=== PATIENT | female | born 1985 | race Caucasian/White ===

== ENCOUNTER 2016-12-16 14:14 | Emergency (ER) | payer MEDICAID, OTHER ==
[2016-12-16 14:35] VITALS: BP 137/81
[2016-12-16 15:24] LABS: Hematocrit 37.6 % (37.0-47.0); Hemoglobin 11.2 gm/dL (12.5-16.0); Mean Cell Volume 75.4 fl (78-100); Mean Corpuscular Hemoglobin 22.4 pg (27-31); Mean Corpuscular Hgb Conc 29.8 g/dl (32-36); Neutrophil # 5.1 K/mm3 (1.3-6.0); Neutrophil % 64.7 % (42-75.0); Platelet Count 237 K/mm3 (150-450); Red Blood Count 4.99 M/mm3 (4.2-5.4); Red Cell Distribution Width 17.7 % (11.5-14.0); White Blood Count 7.8 K/mm3 (4.0-10.5)
--- NOTE | 2016-12-16 15:50 | ERNOTE ---
Integumentary HPI - Narrative Date of Service: 12/16/16 - General Presenting Symptoms: other - "cellulitis" Time Seen by Provider: 12/16/16 14:20 Source: patient Exam Limitations: no limitations - Immun/Allergies/Home Medications Immunizations: IMMUNIZATION HX Immunizations Up to Date Yes History of Influenza Vaccine Yes Hx Pneumococcal Vaccination No Allergies/Adverse Reactions: Allergies Allergy/AdvReac Type Severity Reaction Status Date / Time No Known Allergies Allergy Unverified 12/16/16 14:37 Home Medications: HOME MEDICATIONS Clindamycin HCl [Cleocin HCl] 300 mg PO QID #40 capsule 12/16/16 [Last Taken Unknown] Diltiazem HCl [Diltiazem 24Hr Cd] 240 mg PO DAILY 12/16/16 [Last Taken Unknown] Lisinopril [Zestril] 10 mg PO DAILY 12/16/16 [Last Taken Unknown] - History of Present Illness Narrative: patient presents to the ED for "cellulitis". She relates she has had recurrent right leg cellulitis. Has had more redness and warmth right low leg for the last couple of days. She has had this before with cellulitis and wanted to get back on antibiotics. Last antibiotics was a couple of weeks ago. No other calf pain. No fever. No acute focal N/T/W. no CP or SOB. Location: Reports: other - right LE Modifying Factors - (Improves): Reports: nothing Modifying Factors - (Worsens): Reports: nothing Associated Symptoms: Denies: fever Prior Treatment: Denies: recently seen Review of Systems - Review of Systems Constitutional: Absent: fever Respiratory: Absent: shortness of breath Cardiology: Absent: chest pain Gastrointestinal/Abdominal: Present: no symptoms reported - Patient's Past Medical History Patient History - Medical: No pertinent hx Patient History - Cardiac/Respiratory: Hypertension Patient History - Cancer: No Hx of Cancer Patient History - Surgical Procedures: Pacemaker Patient History - Other: None - Social History Living Situations: home Psych History: No pertinent hx Smoking Status: Never smoker Have you smoked in the past 12 months: No Alcohol Use: none Drug Use: none - Immunizations Immunizations Up to Date: Yes Hx Pneumococcal Vaccination: No History of Influenza Vaccine: Yes Physical Exam - Physical Exam General Appearance: Present: alert, no apparent distress, other - stable, non- toxic, no distress Head Exam: Present: normal inspection, no evidence of injury Eye Exam: Normal inspection: bilateral Ears, Nose, Throat: Present: normal ENT inspection Neck: Present: normal inspection Respiratory: Present: no respiratory distress, normal breath sounds, lungs clear Cardiovascular/Chest: Present: regular rate, rhythm Gastrointestinal/Abdominal: Present: normal bowel sounds, nontender, soft Back Exam: Present: normal range of motion Extremity Exam: Present: other - Mild anterior right LE cellulitis. No abscess , no drainage, no nec fasc. Foot warm and well perfused. No suggestion of DVT. Neurological Exam: Present: alert, normal mood/affect, no motor/sensory deficits Skin Exam: Present: normal color, warm/dry, other - mild cellulitis anterior right springer ED Progress - Results and Orders Patient's Lab Results:: I have reviewed the patient's lab results. - Vital Signs Patient's Vital Signs:: I have reviewed the patient's vital signs. Vital Signs: Vital Signs 12/16/16 14:29 Temperature 37.1 C Pulse Rate 82 Respiratory 16 Rate Blood Pressure 137/81 O2 Sat by Pulse 95 Oximetry - Progress/Reassessment Chief Complaint: Cellulitis Progress Note-Subjective: 12/16/16 15:49 No evidence of sepsis, toxicity, nec fasc, DVT, neuro vascular deficit or other life threat. Will start ABx with close f/u. She feels like goinng home. I discussed warning signs and reasons to reutrn as well as the need for close f/u. Departure Clinical Impression: Cellulitis - Departure Disposition: Home self-care Condition: Stable Instructions: Cellulitis, Adult, [id number] Additional Instructions: Rest. Fluids. Antibiotics as directed. You need to be re-checked by your doctor within 3 days. Return here for fever, increased redness or if your condition worsens or changes in any way. Prescriptions: Clindamycin HCl [Cleocin HCl] 300 mg PO QID #40 capsule
== END 2016-12-16 15:45 | disposition home or self-care (01) ==
LOC: ER 14:14
DX: L03.115 Cellulitis of right lower limb (principal); I10 Essential (primary) hypertension

== ENCOUNTER 2017-02-28 16:27 | Emergency (ER) | payer OTHER ==
--- NOTE | 2017-02-28 16:48 | ERNOTE ---
Lower Extremity HPI - Narrative Date of Service: 02/28/17 - General Lower Extremities Pain: leg: right Time Seen by Provider: 02/28/17 16:38 Source: patient Exam Limitations: no limitations - Immun/Allergies/Home Medications Immunizations: IMMUNIZATION HX Immunizations Up to Date Yes History of Influenza Vaccine No Hx Pneumococcal Vaccination No Allergies/Adverse Reactions: Allergies Allergy/AdvReac Type Severity Reaction Status Date / Time No Known Allergies Allergy Verified 02/28/17 16:35 Home Medications: HOME MEDICATIONS Diltiazem HCl [Diltiazem 24Hr Cd] 240 mg PO DAILY 12/16/16 [Last Taken Unknown] Lisinopril [Zestril] 10 mg PO DAILY 12/16/16 [Last Taken Unknown] - History of Present Illness Narrative: 31-year-old female presents to the emergency room from her doctor's office for right lower leg cellulitis. Patient states she has had multiple rounds of antibiotics for the cellulitis and it has not gotten better. The patient is a darkened area on her midshin on her right leg is swollen. Date (Duration): 02/28/17 Occurred: other Other Injuries: Reports: none Review of Systems - Review of Systems Constitutional: Present: See HPI EYE: Present: no symptoms reported ENT: Present: no symptoms reported Respiratory: Present: no symptoms reported Cardiology: Present: no symptoms reported Gastrointestinal/Abdominal: Present: no symptoms reported Genitourinary: Present: no symptoms reported Musculoskeletal: Present: See HPI Skin: Present: See HPI Neurological: Present: no symptoms reported Endocrine: Present: no symptoms reported Hematologic/Lymphatic: Present: no symptoms reported Psych: Present: no symptoms reported All Other Systems: All systems neg except as marked - Patient's Past Medical History Patient History - Medical: No pertinent hx Patient History - Cardiac/Respiratory: Hypertension Patient History - Cancer: No Hx of Cancer Patient History - Surgical Procedures: Pacemaker Patient History - Other: None - Social History Living Situations: home Abuse History: No History of abuse Psych History: No pertinent hx Smoking Status: Never smoker Alcohol Use: occasionally Drug Use: none - Immunizations Immunizations Up to Date: Yes Hx Pneumococcal Vaccination: No History of Influenza Vaccine: No Physical Exam - Physical Exam Narrative: RLE has pitting edema a 6cm x 3 cm darkened area, skin is not open or weeping. skin is rough feeling. General Appearance: Present: wd/wn, alert, no apparent distress Head Exam: Present: normal inspection, no evidence of injury Eye Exam: Normal inspection: bilateral, PERRL: bilateral Ears, Nose, Throat: Present: normal ENT inspection, normal pharynx Neck: Present: normal inspection, nontender, supple, full range of motion Respiratory: Present: no respiratory distress, normal breath sounds, no accessory muscle use, chest nontender, lungs clear Cardiovascular/Chest: Present: regular rate, rhythm, no murmur, normal peripheral pulses Peripheral Pulses: N=norm/S=strong/W=weak/B=bound/A=absent: Dorsalis-pedis (R): Normal, Dorsalis-pedis (L): Normal Gastrointestinal/Abdominal: Present: normal bowel sounds, nontender, nondistended, soft, no organomegaly Back Exam: Present: normal inspection, normal range of motion, no CVA tenderness , no vertebral tenderness Extremity Exam: Present: normal except -, pedal edema, extremity edema Neurological Exam: Present: alert, oriented, normal mood/affect, no motor/ sensory deficits Skin Exam: Present: normal color, warm/dry Lymphatic Exam: Present: no adenopathy ED Progress - Results and Orders Patient's Lab Results:: I have reviewed the patient's lab results. Results and Orders: elevated CRp and Sed rate - Vital Signs Patient's Vital Signs:: I have reviewed the patient's vital signs. Vital Signs: Vital Signs 02/28/17 16:30 Temperature 37.0 C Pulse Rate 83 Respiratory 16 Rate Blood Pressure 135/62 O2 Sat by Pulse 95 Oximetry - X-Ray X-Ray #1 X-Ray: leg Interpretation: Reviewed by me X-ray Comments: Technique: Left tibia and fibula series (2 views) Comparison:None. Findings: There is limited evaluation of the knee and ankle. No evidence of fracture or dislocation. Alignment is anatomic. Mineralization is normal. Degenerative changes are present about the knee and ankle. No destructive osseous lesions. Joint spaces are maintained. Soft tissue swelling noted. Impression: No acute osseous findings. Electronically signed by Saleem Srivastava D.O.. - CT/Ultrasound CT/Ultrasound Narrative: -RAY REPORT [id number] CT/CT Lower Ext W/WO RT Exam Date: 02/28/2017 18:06 Ordering Physician: Armando Bone History: Chronic wound. Additional history provided by the technologist: 3 months nonhealing. Red and tender, swelling. History of eczema. Patient has pacemaker. History of hypertension, heart disease. Technique: Continuous unenhanced axial CT images were acquired through the right tibia and fibula. Coronal and sagittal reformatted images are provided. Intravenous contrast material was administered and contrast enhanced axial CT images through the right tibia and fibula were also obtained. Coronal and sagittal reformatted images are provided. Individualized dose optimization technique was used for the performed procedure including automated exposure control, adjustment of the mA and/or kV according to patient size and/or the iterative reconstruction technique. Comparison:None. Correlation is made with radiographs dated February. Findings: No acute fracture or dislocation. Alignment is anatomic. Decreased osseous mineralization. There are degenerative changes noted about the knee and ankle. There is a small distal Achilles enthesophyte and moderate plantar calcaneal heel spur. No destructive osseous lesions. Joint spaces are maintained. There is nonspecific superficial soft tissue swelling noted about the mid to distal lower extremity. No evidence of a rim- enhancing fluid collection to suggest abscess. Preliminary interpretation was provided by [facility] on 2016 1956 hours. Impression: Nonspecific superficial soft tissue swelling. No evidence of abscess. Additional findings and comments are as above. Electronically signed by Saleem Srivastava D.O.. Saleem Srivastava DO Dict: 02/28/172043 Typed: 02/28/172043/ 02/28/17204902/28/172051 - Progress/Reassessment Chief Complaint: Lower Extremity Pain/ Injury Plan - Plan Plan: After further discussion with patient's primary care provider it is agreed upon the patient will be discharged and will make a follow-up appointment with her on Friday to discuss further treatment of her right leg. Patient increase his treatment. Either this provider nor her primary care provider feel she needs antibiotics and should be treated as an outpatient at the wound center. Departure Clinical Impression: Venous insufficiency of right lower extremity - Departure Disposition: Home Follow Up Needed Condition: Stable Instructions: Venous Stasis or Chronic Venous Insufficiency Additional Instructions: continue any home medications as directed. make a follow up apt with you Doctor as discussed. Please return to the emergency department if you have any signs and symptoms of infection or you developed a fever. Referrals: Yumiko Newberry DO [Primary Care Provider] -
[2017-02-28 17:02] LABS: Hematocrit 41.2 % (37.0-47.0); Hemoglobin 12.5 gm/dL (12.5-16.0); Mean Cell Volume 76.4 fl (78-100); Mean Corpuscular Hemoglobin 23.2 pg (27-31); Mean Corpuscular Hgb Conc 30.3 g/dl (32-36); Mean Platelet Volume 10.9 fl (6.0-9.5); Neutrophil # 6.5 K/mm3 (1.3-6.0); Neutrophil % 71.9 % (42-75.0); Platelet Count 256 K/mm3 (150-450); Red Blood Count 5.39 M/mm3 (4.2-5.4); Red Cell Distribution Width 17.2 % (11.5-14.0)
[2017-02-28 17:26] LABS: Albumin * 3.7 gm/dl (3.4-5.0); Anion Gap 14.5 mmol/L (6.8-13.8); BUN/Creatinine Ratio 13.6 (9.0-21.6); CRP 2.5 mg/dL (0.0-0.9); Ca. Corrected For Albumin 8.9 mg/dL (8.4-10.2); Carbon Dioxide 26.1 mmol/L (24-32.6); Potassium 3.6 mmol/L (3.4-4.6)
[2017-02-28] MEDS ORDERED: VANCOMYCIN HCL 1 GM in DEXTROSE 5 % IN WATER 250 ML IV ONE ×2 (19:56)
[2017-02-28 21:49] VITALS: BP 148/80
== END 2017-02-28 21:50 | disposition home or self-care (01) ==
LOC: ER 16:27
DX: I87.2 Venous insufficiency (chronic) (peripheral) (principal); I10 Essential (primary) hypertension